=== PATIENT | female | born 1980 | race Caucasian/White ===

== ENCOUNTER 2021-01-19 11:57 | Outpatient (REF) | payer MEDICAID, SELFPAY ==
--- NOTE | 2021-01-19 09:45 | PAPFT_PTH ---
PATIENT: Ana Armijo LOC: [facility] U#:[id number] AGE/SX: 40/F ROOM: RE01/19/[address]: Jaycee Mejía : 1980 BED: DIS: 01/19/2021 SPEC #: [id number] RECD: 01/19/21 13:02 STATUS: ROCK REJoe #: [id number] KRISTINE: 01/19/21 09:[address]: Jaycee Mejía DEPT: [facility] Cytology RECD BY: Saritha Cintron Tissues: 1 - CX/ENDOCX FOR PAP SMEARS Procedures: PAP THIN PREP/UVM Screening HPV DNA PROBE Comments: [id number] (CHLAMYDIA/GC) (HPV 16 & 18/45)
[2021-01-19 14:07] LABS: Abs Immature Grans 0.02 10^3/uL (0.0-0.06); Absolute Basophil Count 0.09 10^3/uL (0.0-0.2); Absolute Eosinophil Count 0.09 10^3/uL (0.0-0.7); Absolute Lymphocyte Count 3.77 10^3/uL (1.2-3.4); Absolute Monocyte Count 0.63 10^3/uL (0.1-0.8); Absolute Neutrophil Count 5.27 10^3/uL (1.2-6.7); Basophils % 0.9; Eosinophils % 0.9; HCT 37.2 % (36.0-46.0); HGB 12.2 g/dL (11.2-15.7); Immature Grans % 0.2; Lymphocytes % 38.2; MCH 28.8 pg (27.0-33.0); MCHC 32.8 % (32.0-36.0); MCV 87.9 fL (80-95); MPV 10.1 fL (8.0-11.0); Monocytes % 6.4; Neutrophils % 53.4; Nucleated RBC 0 %; Platelet Count 388 10^3/uL (130-400); RBC 4.23 10^6/uL (3.93-5.22); RDW 13.4 % (11.7-14.6); RDW-SD 43.4 fL; WBC 9.87 10^3/uL (4.4-10.8)
[2021-01-19 14:22] LABS: ALT 25 U/L (14-59); AST 21 U/L (15-37); Albumin 3.8 g/dL (3.4-5.0); Alkaline Phosphatase 101 U/L (46-116); Anion Gap 8.9 mmol/L (3-11); BUN 16 mg/dL (7-18); Bilirubin, Total 0.2 mg/dL (0.2-1.0); C-Reactive Protein 0.19 mg/dL (0.0-0.3); CO2 28.1 mmol/L (21.0-32.0); CREATININE 0.8 mg/dL (0.55-1.02); Calcium 8.3 mg/dL (8.5-10.1); Chloride 103 mmol/L (98-107); Glucose 115 mg/dL (74-106); Potassium 4.2 mmol/L (3.5-5.1); Sodium 140 mmol/L (136-145)
[2021-01-19 14:45] LABS: Calculated LDL 114 mg/dL (<100); Cholesterol 170 mg/dL (<200); HDL Cholesterol 44 mg/dL (40-60); Triglyceride 61 mg/dL (<150)
[2021-01-20 10:18] LABS: Hepatitis C Ab w Rflx HCV PCR Negative (Negative)
[2021-01-20 10:20] LABS: HIV-1/2 Ag & Ab Screen Negative (Negative)
[2021-01-20 15:17] LABS: Chlamydia Result Negative (Negative); GC Result Negative (Negative)
== END 2021-01-19 11:58 | disposition home or self-care (01) ==
LOC: NCHCN 11:57
PROVIDERS: PCP Registered Nurse; Visit Provider Registered Nurse
DX: R59.1 Generalized enlarged lymph nodes (principal); Z11.3 Encounter for screening for infections with a predominantly sexual mode of transmission; Z13.220 Encounter for screening for lipoid disorders; Z11.59 Encounter for screening for other viral diseases; Z11.4 Encounter for screening for human immunodeficiency virus [HIV]; Z12.4 Encounter for screening for malignant neoplasm of cervix; Z11.51 Encounter for screening for human papillomavirus (HPV); R87.610 Atypical squamous cells of undetermined significance on cytologic smear of cervix (ASC-US)
CPT/HCPCS: 80053; 80061; 86803; 87389; 87491; 87591; 88142; 85025; 86140; 87624

== ENCOUNTER 2021-06-23 11:46 | Outpatient (REF) | payer MEDICAID, SELFPAY ==
[2021-06-26 12:05] LABS: Parathyroid Hormone,Intact 20 pg/mL (19-88)
== END 2021-06-23 11:47 | disposition home or self-care (01) ==
LOC: NCHCN 11:46
PROVIDERS: PCP Registered Nurse; Visit Provider Registered Nurse
DX: E83.51 Hypocalcemia (principal)
CPT/HCPCS: 82310; 83970

== ENCOUNTER 2021-08-25 21:10 | Outpatient (REF) | payer MEDICAID, SELFPAY ==
[2021-08-25 21:52] LABS: Bilirubin Negative (Negative); Blood Negative (Negative); Clarity Sl Cloudy (Clear); Glucose 100 mg/dL (Negative); Ketones Negative (Negative); Leukocyte Esterase Small (Negative); Nitrite Negative (Negative); Specific Gravity 1.025 (1.005-1.025); Urobilinogen 0.2 EU/dL (Up TO 0.2); pH 7.5 (5-8)
[2021-08-25 22:40] LABS: Bacteria Many HPF (Negative); Epithelial Cells Many HPF (Negative); Other Cells Negative (Negative); RBC Negative HPF (0-2)
[2021-08-25 22:41] LABS: C & S Indicated? No/Sq. Contamination; Casts Negative LPF (Negative); Crystals Many Triple Phos HPF (Negative); Mucus Negative (Negative)
== END 2021-08-25 21:11 | disposition home or self-care (01) ==
LOC: NCHCN 21:10
PROVIDERS: PCP Registered Nurse; Visit Provider Registered Nurse
DX: R35.0 Frequency of micturition (principal)
CPT/HCPCS: 81003; 81015

== ENCOUNTER 2024-12-02 15:12 | Outpatient (REF) | payer SELFPAY ==
--- OUTSIDE RECORDS SUMMARY | 2024-12-02 15:19 | XMS_ITS | Encounter Summary ---
Author Organization [facility] Address [address] [place] [address] Care Team Providers Care Station Mechanic Apprentice Name Role Phone Basilio Castellano MD Primary Care Provider [phone] Encounter Details Date Type Department Care Team (Late st Contact Info) Description 01/19/2021 Lab Requisition [facility] Pathology & Laboratory Medicine - [facility] [address], [place] [address] Outr Resulting Lab, Provider Social History Tobacco Use Types Packs/Day Years Used Date Smoking Tobacco: Never Assessed Interpersonal Safety Answer Date Record ed Physically Hurt Never 06/12/2020 Verbally Threaten Not on file 06/12/2020 Comments Unknown Sex and Gender Information Value Date Recorded Sex Assigned at Not on file Legal Sex Female 18:13 EST Gender Identity Not on file Sexual Orientation Not on file documented as of this encounter Plan of Treatment Not on file documented as of this encounter Procedures Procedure Name Priority Date/Time Associated Diagnosis Comments CHLAMYDIA/N. GONORRHOEAE AMPLIFIED NUCLEIC ACID, THINPREP Routine 01/19/2021 9:45 EST documented in this encounter Results * CHLAMYDIA/N. GONORRHOEAE AMPLIFIED RNA, THINPREP (01/19/2021 9:45 EST) Neisseria gonorrhoeae Result Negative Negative 01/20/2021 15:11 EST [facility] Chlamydia trachomatis Result Negative Negative 01/20/2021 15:11 EST [facility] Papanicolaou smear specimen (specimen) CERVIX UTERI STRUCTURE / Unknown 01/19/2021 9:45 EST 01/20/2021 8:27 EST us Provider Outr Resulting Lab MICROBIOLOGY - GENER AL ORDERABLES Final Result [facility] [address] [place] [address] documented in this encounter Visit Diagnoses Not on filedocumented in this encounter Care Teams Station Mechanic Apprentice Relationship Specialty Start Date End Date Basilio Castellano MD [address] [place] [address] PCP - General 01/06/10 documented as of this encounter
--- OUTSIDE RECORDS SUMMARY | 2024-12-02 15:19 | XMS_ITS | Encounter Summary ---
Author Organization [facility] Address [address] [place] [address] Care Team Providers Care Business And Marketing Teacher Name Role Phone Basilio Castellano MD Primary Care Provider [phone] Encounter Details Date Type Department Care Team (Late st Contact Info) Description 01/20/2021 Lab Requisition [facility] Pathology & Laboratory Medicine - [facility] [address] [place] [address] Jaycee Mejía, CUSTOMER MARKETING ASSISTANT [address] [place] [address] Encounter for general adult medical examination without abnormal findings; Encounter for screening for malignant neoplasm of cervix Social History Tobacco Use Types Packs/Day Years [...] Procedure Name Priority Date/Time Associated Diagnosis Comments PAP TEST Today 01/19/2021 9:45 EST Encounter for general adult medical examination without abnormal findings Encounter for screening for malignant neoplasm of cervix HPV DNA DETECTION WITH GENOTYPING, PCR, THINPREP Today 01/19/2021 9:45 EST Encounter for general adult medical examination without abnormal findings Encounter for screening for malignant neoplasm of cervix documented in this encounter Results * HPV DNA DETECTION WITH GENOTYPING, PCR, THINPREP (01/19/2021 9:45 EST) Specimen Source vagina 21:29 EDT [facility] HPV Risk Type 16, PCR Negative Negative 01/31/2021 21:29 EDT [facility] HPV High Risk Type 18, PcR Negative Negative 01/31/2021 21:29 EDT [facility] HPV Other High Risk Types, PCR Negative Negative 01/31/2021 21:29 EDT [facility] Comment: The following Other High Risk HPV types were not detected: 31, 33, 35, 39, 45, 51, 52, 56, 58, 59, 66, and 68 Test Performed by: [address] [address] Small Boat Engineer: Guido Meier M.D. Ph.D.; CLIA# [id number] Papanicolaou smear specimen (specimen) ENTIRE VAGINA / Unknown 01/19/2021 9:45 EST 01/30/2021 11:18 EDT us Jaycee Mejía CUSTOMER MARKETING ASSISTANT MICROBIOLOGY - GENERAL O RDERABLES Final Result [address] [address] * PAP TEST (01/19/2021 9:45 EST) Specimens A. Vagina , ThinPrep Imaging System with Manual Evaluation 02/01/2021 7:52 EDT [facility] Specimen Adequacy Satisfactory for Evaluation - transformation zone component present 02/01/2021 7:52 EDT [facility] General Categorization Epithelial Cell Abnormality 02/01/2021 7:52 EDT [facility] Descriptive Diagnosis Squamous Cell Abnormality - Atypical squamous cells, undetermined significance (ASC-US). 02/01/2021 7:52 EDT [facility] Educational Comments [facility] recommends following ASCCP's 2012 Updated Consensus Guidelines for the Management of Abnormal Cervical Cancer Screening Tests and Cancer Precursors (JLGTD, 2013; 17(5):S1-S27). Consensus guidelines are available online at www.asccp.org. 02/01/2021 7:52 [facility] Attestation By the signature below, the attending physician certifies that they have personally conducted a gross and/or microscopic examination of the described specimens and rendered or confirmed the above diagnosis. 02/01/2021 7:52 [facility] at 0752 Clinical History See below 02/02/20 7:52 [facility] HPV The results for the HPV with Genotyping, PCR, ThinPrep are Negative for the HPV Risk Type 16, PCR, Negative for the HPV High Risk Type 18, PcR, and Negative for the HPV Other High Risk Types, PCR. Testing was performed on specimen [id number] and was resulted on 01/31/20212231 EDT by ALEXIS [facility]. Comment: The following Other High Risk HPV types were not detected: 31, 33, 35, 39, 45, 51, 52, 56, 58, 59, 66, and 68 Test Performed by: [place] [address] Small Boat Engineer: Guido Meier M.D. Ph.D.; CLIA# [id number] 02/01/2021 7:52 [facility] Performing Lab [facility] 02/01/2021 7:52 [facility] Scanned Images 02/01/2021 7:52 [facility] Papanicolaou smear specimen (specimen) ENTIRE VAGINA / Unknown 01/19/2021 9:45 EST 01/20/2021 15:44 EST us Jaycee Mejía CUSTOMER MARKETING ASSISTANT PATHOLOGY ORDERABLES Fin al Result [facility] [address] [place] [address] documented in this encounter Visit Diagnoses Diagnosis Encounter for general adult medical examination without abnormal findings Unspecified general medical examination Encounter for screening for malignant neoplasm of cervix Screening for malignant neoplasm of the cervix documented in this encounter Care Teams Business And Marketing Teacher Relationship Specialty Start Date End Date Basilio Castellano MD [address] [place] [address] PCP - General 01/06/10 documented as of this encounter
--- OUTSIDE RECORDS SUMMARY | 2024-12-02 15:19 | XMS_ITS | Encounter Summary ---
Author Organization [facility] Address [address] [place] [address] Care Team Providers Care Jig Builder Name Role Phone Unavailable Primary Care Provider Unavailabl e Encounter Details Date Type Department Care Team (Late st Contact Info) Description 12/29/2009 Results Only [facility] - [facility] ([facility] [address] [place], [place] [id number] Adan Hernandez MD [address] [place] [address] [address] [place] [address] Social History Tobacco Use Types Packs/Day Years Used Date Smoking Tobacco: Never Assessed Comments Unknown Sex and Gender Information Value Date Recorded Sex Assigned at Not on file Legal Sex Female 18:13 EST Gender Identity Not on file Sexual Orientation Not on file documented as of this encounter Plan of Treatment Not on file documented as of this encounter Procedures Procedure Name Priority Date/Time Associated Diagnosis Comments HPV DETECTION, HIGH RISK TYPES Routine 12/29/2009 21:44 EST CYTOPATHOLOGY Routine 12/29/2009 0:00 EST documented in this encounter Results * HUMAN PAPILLOMA VIRUS DNA TEST (12/29/2009 21:44 EST) Specimen Description Cervix, ThinPrep vial [facility] Result Positive for one or more of HPV types 16,18,31,33,35 ,39,45,51,52,5 6,58,59, or 68. These high/intermedi ate risk HPV types are associated with dysplasia and some cervical cancers. [facility] Report Status Final 01/10/2010 [facility] 12/29/2009 21:4 4 EST 01/06/2010 21:44 EST us Adan Hernandez MD MICROBIOLOGY - GENERAL ORDERABLE S Final Result [facility] [address] [place] [address] * CYTOPATHOLOGY (12/29/2009 0:00 EST) Pathology Report: CYTOPATHOLOGY REPORT ? Reports generated via electronic interface contain original data; ? however they are lacking the format of the original report. ? Caution should be taken when reading/interpreti ng unformatted reports. ? Name: ? ANA HOPPER ? Accession #: ? [id number] ? : ? 1980 (Age: 29) ??F ?Collect Date: ? 12/29/2009 ? Location: ? [facility] ? Receive Date: ? 01/02/2010 ? Provider: ?PETER HALEY MD ? Copy to: ? Specimen/Source: ?Pap Test, Vagina, ThinPrep Imaging System with manual ?? evaluation ? Last Menstrual Period: ? 2002 ? Treatment History: ? LAVH: /RSO 2002 ? Miscellaneous treatment: LSO 05/08 ? Other: ? HPVA - HPV testing requested if ASC-US on the current ThinPrep Pap test. ? SPECIMEN ADEQUACY ? Satisfactory for Evaluation ? - assessment of transformation zone component not applicable ( e.g. atrophy, ? vaginal sample, hysterectomy) ? GENERAL CATEGORIZATION ? Epithelial Cell Abnormality ? INTERPRETATION ? Squamous Cell Abnormality - Atypical squamous cells, undetermined ? significance (ASC-US). ? EDUCATIONAL NOTES/RECOMMENDATI ONS ? [facility] recommends following the 2006 Consensus Guidelines for the Management of Women with Abnormal Cervical Cancer Screening Tests (JLGTD, ? 2007;11(4):201-222 ). ??Consensus guidelines are available online at ? www.ASCCP.org. ? Document reviewed and electronically signed by: ? PALMA ESTRADA MD [facility] ? Report Date: ??01/05/2010 20:07 ? End of Report ? [facility] 12/29/2009 01/02/2010 us Adan Hernandez MD PATHOLOGY ORDERABLES Final Resul t [facility] [address] [place] [address] documented in this encounter Visit Diagnoses Not on filedocumented in this encounter
--- OUTSIDE RECORDS SUMMARY | 2024-12-02 15:19 | XMS_ITS | Encounter Summary ---
Author Organization [facility] [place] [address] Care Team Providers Care Assistant Operations Manager Name Role Phone Gregory Naik DO Primary Care Provider [phone] Reason for Visit * - Closed Specialty Diagnoses / Procedures Referred By Bety perdue Referred To Contact Procedures Film Library- Storage Only Ultrasound Study Jaycee Mejía APRN [address] [place] [address] Referral ID Status Reason Start Date Expiration Date Visits Re quested Visits Authorized [id number] Closed 02/08/2021 02/08/2022 1 1 Encounter Details Date Type Department Care Team (Late st Contact Info) Description 01/26/2021 Ancillary Procedure Radiology Library at [facility] [place] [phone] Jaycee Mejía APRN [address] [place], [place] [address] Social History Tobacco Use Types Packs/Day Years Used Date Smoking Tobacco: Never Assessed Sex and Gender Information Value Date Recorded Sex Assigned at Not on file Gender Identity Not on file Sexual Orientation Not on file documented as of this encounter Plan of Treatment Not on file documented as of this encounter Procedures Procedure Name Priority Date/Time Associated Diagnosis Comments FILM LIBRARY STORAGE ONLY ULTRASOUND STUDY Routine 01/26/2021 12:00 AM EDT documented in this encounter Results * Film Library- Storage Only Ultrasound Study (01/26/2021 12:00 AM EDT) Narrative RAD - 02/08/2021 4:17 PM EDT This exam is auto-finalizing. It's purpose is for storage only. Jaycee Mejía ANNUAL CAMPAIGN MANAGER IMG FILM LIBRARY ORDERABLES [place], [place] documented in this encounter Visit Diagnoses Not on filedocumented in this encounter Care Teams Assistant Operations Manager Relationship Specialty Start Date End Date Gregory Naik DO [address] [place] [address] PCP - General 10/03/10 02/07/21 documented as of this encounter
--- OUTSIDE RECORDS SUMMARY | 2024-12-02 15:19 | XMS_ITS | Referral Summary ---
Author Organization [facility] Address [address] [place] [address] Care Team Providers Care Regional Training Manager Name Role Phone Basilio Castellano MD Primary Care Provider [phone] Social History Tobacco Use Types Packs/Day Years Used Date Smoking Tobacco: Never Assessed Interpersonal Safety Answer Date Record ed Physically Hurt Never 06/12/2020 Verbally Threaten Not on file 06/12/2020 Comments Unknown Sex and Gender Information Value Date Recorded Sex Assigned at Not on file Legal Sex Female 18:13 EST Gender Identity Not on file Sexual Orientation Not on file Plan of Treatment Not on file Procedures Procedure Name Priority Date/Time Associated Diagnosis Comments HEPATITIS C AB W REFLEX TO HCV RNA BY PCR Routine 12/24/2021 12:19 EST from Last 3 Months or Most Recently Relevant to Health Maintenance Results * HEPATITIS C AB W REFLEX TO HCV RNA BY PCR (12/24/2021 12:19 EST) Hep C Antibody Negative Negative 12/26/2021 10:56 EST [facility] Blood VENOUS BLOOD / Unknown 12/24/2021 12:19 EST 12/25/2021 22:06 EST us Provider Outr Resulting Lab CHEMISTRY & BLOOD GA S ORDERABLES Final Result [facility] [address] [place] [address] from Last 3 Months or Most Recently Relevant to Health Maintenance Insurance MEDICAID [place] Care Teams Regional Training Manager Relationship Specialty Start Date End Date Basilio Castellano MD [address] [place] [address] PCP - General 01/06/10
--- OUTSIDE RECORDS SUMMARY | 2024-12-02 15:19 | XMS_ITS | Encounter Summary ---
Author Organization [facility] Address [address] [place] [address] Care Team Providers Care Prestidigitator Name Role Phone Unavailable Primary Care Provider Unavailabl e Encounter Details Date Type Department Care Team (Late st Contact Info) Description 10/12/1999 8:43 EST Hospital Encounter [facility] [address] [place] [address] Devon Carias MD Unknown, Provider, Social History Tobacco Use Types Packs/Day Years [...] on file documented as of this encounter Visit Diagnoses Not on filedocumented in this encounter
--- OUTSIDE RECORDS SUMMARY | 2024-12-02 15:19 | XMS_ITS | Clinical Summary ---
Author Organization [facility] Address [address] [place] [address] Care Team Providers Care Air Hammer Stripper Name Role Phone Basilio Castellano MD Primary Care Provider [phone] Social History Tobacco Use Types Packs/Day Years Used Date Smoking Tobacco: Never Assessed Interpersonal Safety Answer Date Record ed Physically Hurt Never 06/12/2020 Verbally Threaten Not on file 06/12/2020 Comments Unknown Sex and Gender Information Value Date Recorded Sex Assigned at Not on file Legal Sex Female 18:13 EST Gender Identity Not on file Sexual Orientation Not on file Plan of Treatment Health Maintenance Due Date Last Done Comments Hepatitis B Vaccine (1 of 3 - 19+ 3-dose series) 1997 COVID-19 Vaccine (2023- season) 2024 Hepatitis C Screen Completed 12/24/2021, 01/19/2021 Procedures Procedure Name Priority Date/Time Associated Diagnosis Comments HEPATITIS C AB W REFLEX TO HCV RNA BY PCR Routine 12/24/2021 12:19 EST from Last 3 Months or Most Recently Relevant to Health Maintenance Results * HEPATITIS C AB W REFLEX TO HCV RNA BY PCR (12/24/2021 12:19 EST) Hep C Antibody Negative Negative 12/26/2021 10:56 EST [facility] Blood VENOUS BLOOD / Unknown 12/24/2021 12:19 EST 12/25/2021 22:06 EST us Provider Outr Resulting Lab CHEMISTRY & BLOOD GA S ORDERABLES Final Result [facility] [address] [place] [address] from Last 3 Months or Most Recently Relevant to Health Maintenance Insurance MEDICAID [place] Care Teams Air Hammer Stripper Relationship Specialty Start Date End Date Basilio Castellano MD [address] [place] [address] PCP - General 01/06/10
--- OUTSIDE RECORDS SUMMARY | 2024-12-02 15:19 | XMS_ITS | Encounter Summary ---
Author Organization [facility] Address [address] [place] [address] Care Team Providers Care Nonprofit Fundraiser Name Role Phone Basilio Castellano MD Primary Care Provider [phone] Encounter Details Date Type Department Care Team (Late st Contact Info) Description 12/24/2021 Lab Requisition [facility] Pathology & Laboratory Medicine - [facility] [address] [place], [place] [address] Outr Resulting Lab, Provider Social History Tobacco [...] RNA BY PCR Routine 12/24/2021 12:19 EST HEPATITIS A TOTAL ANTIBODY W REFLEX Routine 12/24/2021 12:19 EST HEPATITIS B CORE ANTIBODY (TOTAL) Routine 12/24/2021 12:19 EST HEPATITIS B SURFACE ANTIBODY Routine 12/24/2021 12:19 EST HEPATITIS B SURFACE ANTIGEN Routine 12/24/2021 12:19 EST HIV 1/2 ANTIGEN AND ANTIBODY, 4TH GENERATION Routine 12/24/2021 12:19 EST documented in this encounter Results * HEPATITIS C AB W REFLEX TO HCV RNA BY PCR (12/24/2021 12:19 EST) Hep C Antibody Negative Negative 12/26/2021 10:56 EST [facility] Blood VENOUS BLOOD / Unknown 12/24/2021 12:19 EST 12/25/2021 22:06 EST us Provider Outr Resulting Lab CHEMISTRY & BLOOD GA S ORDERABLES Final Result Performing Organization Address City/[facility]/ZIP Co de Phone Number [facility] [address] [place] [address] * HEPATITIS B SURFACE ANTIGEN (12/24/2021 12:19 EST) Hep B Surface Ag Negative Negative 12/26/2021 10:12 EST [facility] Blood VENOUS BLOOD / Unknown 12/24/2021 12:19 EST 12/25/2021 22:06 EST us Provider Outr Resulting Lab CHEMISTRY & BLOOD GA S ORDERABLES Final Result Performing Organization Address City/[facility]/ZIP Co de Phone Number [facility] [address] [place] [address] * HEPATITIS B CORE ANTIBODY (TOTAL) (12/24/2021 12:19 EST) Hepatitis B Core Ab, Total Negative Negative 12/26/2021 11:00 EST [facility] Blood VENOUS BLOOD / Unknown 12/24/2021 12:19 EST 12/25/2021 22:06 EST us Provider Outr Resulting Lab CHEMISTRY & BLOOD GA S ORDERABLES Final Result Performing Organization Address City/[facility]/ZIP Co de Phone Number [facility] [address] [place] [address] * HEPATITIS B SURFACE ANTIBODY (12/24/2021 12:19 EST) Hep B Surface Ab, Quantitative >1,000.0 See Note mIU/mL 12/26/2021 10:02 [facility] Comment: Reference Range for Hep B Surface Ab, Quant: Positive: >= 10.0 mIU/mL Negative: ??< 10.0 mIU/mL Patient is presumed to be immune to infection with Hepatitis B Virus. Hep B Surface Ab, Qualitative Positive See Note 12/26/2021 10:02 [facility] Comment: Reference Range for Hep B Surface Ab, Qual: Unvaccinated: ??Negative Vaccinated: ??Positive Blood VENOUS BLOOD / Unknown 12/24/2021 12:19 EST 12/25/2021 22:06 EST Provider Outr Resulting Lab CHEMISTRY & BLOOD GA S ORDERABLES Final Result Performing Organization Address [facility] Co de Phone Number [facility] [address] [place] [address] * HIV 1/2 ANTIGEN AND ANTIBODY, 4TH GENERATION (12/24/2021 12:19 EST) HIV 1 and 2 Antibody/p24 Antigen, 4th Generation Negative Negative 12/26/2021 10:49 EST [facility] Comment:If acute HIV-1 infec tion is suspected in a high risk patient, submit plasma specimen for HIV-1 RNA quantitation test. Blood VENOUS BLOOD / Unknown 12/24/2021 12:19 EST 12/25/2021 22:06 EST Narrative [facility] - 12/26/2021 10:49 EST Fourth Generation assay performed on the Siemens Centaur XPT. us Provider Outr Resulting Lab IMMUNOLOGY AND SEROL OGY ORDERABLES Final Result Performing Organization Address [facility]/ZIP Co de Phone Number [facility] [address] [place] [address] * HEPATITIS A TOTAL ANTIBODY W REFLEX (12/24/2021 12:19 EST) Hepatitis A Antibody, Total Negative Negative 12/26/2021 11:01 EST [facility] Blood VENOUS BLOOD / Unknown 12/24/2021 12:19 EST 12/25/2021 22:06 EST Narrative [facility] - 12/26/2021 11:01 EST The result of this assay can be falsely elevated (Positive) due to the consumption of Biotin. us Provider Outr Resulting Lab CHEMISTRY & BLOOD GA S ORDERABLES Final Result Performing Organization Address City/State/[facility] Co de Phone Number [facility] [address] [place] [address] documented in this encounter Visit Diagnoses Not on filedocumented in this encounter Care Teams Nonprofit Fundraiser Relationship Specialty Start Date End Date Basilio Castellano MD [address] [place] [address] PCP - General 01/06/10 documented as of this encounter
--- OUTSIDE RECORDS SUMMARY | 2024-12-02 15:19 | XMS_ITS | Encounter Summary ---
Author Organization [facility] [place] [address] Care Team Providers Care Gwot Ia/Ilo Intelligence Support Name Role Phone Jaycee Mejía APRN Primary Care Provider + Encounter Details Date Type Department Care Team (Late st Contact Info) Description 03/09/2022 Telephone Obstetrics [place] [phone] Erin Cruz Social History Tobacco Use Types Packs/Day Years Used Date Smoking Tobacco: Every Day Smokeless Tobacco: Never Sex and Gender Information Value Date Recorded Sex Assigned at Not on file Gender Identity Not on file Sexual Orientation Not on file documented as of this encounter Plan of Treatment Not on file documented as of this encounter Visit Diagnoses Not on filedocumented in this encounter Care Teams Gwot Ia/Ilo Intelligence Support Relationship Specialty Start Date End Date Jaycee Mejía APRN [address] [place] [address] PCP - General Family Medicine 02/08/21 documented as of this encounter
--- OUTSIDE RECORDS SUMMARY | 2024-12-02 15:19 | XMS_ITS | Encounter Summary ---
Author Organization [facility] Address [facility] [place] [address] Care Team Providers Care Research Animal Facility Supervisor Name Role Phone Jaycee Mejía APRN Primary Care Provider + Encounter Details Date Type Department Care Team (Late st Contact Info) Description 02/13/2021 2:25 PM EDT - 02/13/2021 11:59 PM EDT Hospital Encounter Discharge Dis position: Home Social History Tobacco Use Types Packs/Day Years Used Date Smoking Tobacco: Never Assessed Sex and Gender Information Value Date Recorded Sex Assigned at Not on file Gender Identity Not on file Sexual Orientation Not on file documented as of this encounter Medications at Time of Discharge Medication Sig Dispensed Refills Start Date End Date docusate sodium (COLACE) 100 mg capsule 100 MG = 1 Capsule(s), PO, Twice daily 04/15/2008 ibuprofen (ADVIL;MOTRIN) 800 mg tablet 800 MG = 1 Tablet(s), PO, Q8H 04/15/2008 acetaminophen (TYLENOL) 325 mg tablet 04/15/2008 estrogens, conjugated, (PREMARIN) 0.625 mg tablet 0.625 MG = 1 Tablet(s), PO, Once daily 04/15/2008 documented as of this encounter Plan of Treatment Not on file documented as of this encounter Procedures Procedure Name Priority Date/Time Associated Diagnosis Comments SURGICAL PATHOLOGY REPORT Routine 02/13/2021 2:26 PM EDT documented in this encounter Results * Surgical Pathology Report (02/13/2021 2:26 PM EDT) Final Diagnosis [id number] ? Location: [facility] The signing pathologist has (i) examined the relevant preparation(s) for the specimen(s) and (ii) rendered or confirmed the diagnosis(es). . ?Surgical Pathology DIAGNOSIS CONSULTATION CASE Outside slide(s) labeled [id number], collection date 05/15/2019. Right flank, skin ??excision: - Basal cell carcinoma, superficial type, pigmented, see discussion Electronically signed by: ??Quincy Sanders MD Verified: ??02/13/2021 ?Dermatopatholog ist, Bone & Soft Tissue Pathologist Performed at: ??-[facility] [place], [place], [place] DISCUSSION The tumor extends to peripheral specimen edge; however, per report, this may not represent the true margin. SPECIMEN(S) SUBMITTED CONSULTATION CASE A - 5 slide(s) labeled [id number], collection date 05/15/2019. [id number] Report to: [facility] Surgical Pathology Department [facility], [facility], [address]nd Floor [address] [place] [address] ??[id number] CLINICAL INFORMATION . SPECIMEN PROCESSING [facility] ([facility]) pathology slide(s) are reviewed. ??Refer to Diagnosis and Specimen Submitted for specific case information. For the full text of the [facility] report(s) please refer to Non- Documentation Pathology in the electronic health record (eDH). 02/13/2021 4:51 PM EDT [facility] Consult Case 02/13/2021 2:26 PM EDT 02/13/2021 2:26 PM EDT Chidi Kang MD PATHOLOGY/[place] [address] documented in this encounter Visit Diagnoses Not on filedocumented in this encounter Care Teams Research Animal Facility Supervisor Relationship Specialty Start Date End Date Jaycee Mejía APRN [address] [place] [address] PCP - General Family Medicine 02/08/21 documented as of this encounter
--- OUTSIDE RECORDS SUMMARY | 2024-12-02 15:19 | XMS_ITS | Encounter Summary ---
Author Organization [facility] Address [address] [place] [address] Care Team Providers Care Milk Truck Driver Name Role Phone Basilio Castellano MD Primary Care Provider [phone] Encounter Details Date Type Department Care Team (Late st Contact Info) Description 01/19/2021 Lab Requisition [facility] Pathology & Laboratory Medicine - [facility] [address], [place] [address] Outr Resulting Lab, Provider Social History Tobacco [...] REFLEX TO HCV RNA BY PCR Routine 01/19/2021 10:00 EST documented in this encounter Results * HEPATITIS C AB W REFLEX TO HCV RNA BY PCR (01/19/2021 10:00 EST) Hep C Antibody Negative Negative 01/20/2021 10:12 EST [facility] Blood VENOUS BLOOD / Unknown 01/19/2021 10:00 EST 01/19/2021 20:40 EST us Provider Outr Resulting Lab CHEMISTRY & BLOOD GA S ORDERABLES Final Result [facility] [address] [place] [address] documented in this encounter Visit Diagnoses Not on filedocumented in this encounter Care Teams Milk Truck Driver Relationship Specialty Start Date End Date Basilio Castellano MD [address] [place] [address] PCP - General 01/06/10 documented as of this encounter
--- OUTSIDE RECORDS SUMMARY | 2024-12-02 15:19 | XMS_ITS | Encounter Summary ---
Author Organization [facility] Address [facility] [place] [address] Care Team Providers Care Manager Collection Name Role Phone MejíaJaycee Pat AMBROSIO Primary Care Provider + Encounter Details Date Type Department Care Team (Late st Contact Info) Description 04/04/2008 Orders Only Gynecology Oncology at [facility] [place] [id number] Chidi Kang MD Social History Tobacco Use Types Packs/Day Years [...] Associated Diagnosis Comments SURGICAL PATHOLOGY REPORT Routine 04/05/2008 7:22 AM EDT documented in this encounter Results * Surgical Pathology Report (04/05/2008 7:22 AM EDT) Surgical Pathology Report [id number] ? [facility]; B The signing pathologist has (i) examined the relevant preparation(s) for the specimen(s) and (ii) rendered or confirmed the diagnosis(es). . ?Pathology Surgical Pathology Final Report Clinical Information Specimen Submitted: A - Left ovary and tube, pelvis for frozen section Clinical Diagnosis: Left pelvic pain, left pelvic mass Frozen Section Diagnosis Frozen section(s) performed. ??Please refer to separate electronic frozen section report(s). Gross Description Labeled/Fixative: ?Left ovary and tube, pelvis; fresh. Qty/Size/Weight: ? Multiple fragments. ??The disrupted ovary and ? attached fallopian tube, 5.5 x 4.5 x 3.5 cm. ??The ? hemorrhagic fragments, 41.3 and 13.4 g respectively. Tissue Description: ?Disrupted ovary with attached fallopian tube with a ? clip at the fallopian tube and detached hemorrhagic ? fragments. ?? Surface: ?Nodular and hemorrhagic. ?? Tumor: ?Not identified. ?? Parenchyma: ? Cut surface is hemorrhagic with several small cysts, ? 0.3 cm in diameter, smooth inner lining and no fluid ? identified. ?? Fallopian tube: ? 4.0 cm in length, 0.7 cm in diameter. ??The outer ? surface is hemorrhagic and smooth. ??Cut surface ? shows stellate-shaped lumen and hemorrhagic wall. Sections/Processi ng: ?? (1) public service representative three pieces from the ovary, ? frozen section; (2) public service representative of ovary; (3) ? ovary and cross section of fallopian tube. ??Photo is ?taken and e-mailed to Dr. Kang. ?? (R3) ??aje/HC Microscopic Description Slides reviewed, microscopic description not recorded. Diagnosis Left fallopian tube and ovary (salpingo-oophore ctomy): ?? 1. Torsed fallopian tube and ovary with extensive stromal hemorrhage. ?? 2. No evidence of malignancy. CR-0 04/08/08 [facility] 04/08/08 Verified by: ? Qamar Aguilera MD ?Pathologist ?(Electronic Signature) The attending pathologist whose signature appears on this report has reviewed all diagnostic slides and has edited the gross and/or microscopic portion of the report in rendering the final pathologic diagnosis. . ? Pathology Frozen Section Report Frozen Section Report A. Benign hemorrhagic ovary, consistent with torsion. 04/06/08 ??Verified by: ??Navarro Rivas MD, Pathologist The attending pathologist whose electronic signature appears on this report has reviewed all diagnostic slides in rendering the frozen section diagnosis. This intraoperative consultation should be interpreted as a preliminary diagnosis pending review of the entire specimen and special studies, if any. KEVIN ONTIVEROS 04/05/2008 7:22 AM EDT Chidi Kang MD PATHOLOGY/CYTOLOGY O RDERABLES KEVIN ONTIVEROS documented in this encounter Visit Diagnoses Not on filedocumented in this encounter Care Teams Manager Collection Relationship Specialty Start Date End Date Jaycee Mejía APRN [address] [place] [address] PCP - General Family Medicine 02/08/21 documented as of this encounter
--- OUTSIDE RECORDS SUMMARY | 2024-12-02 15:19 | XMS_ITS | Encounter Summary ---
Author Organization [facility] Address [facility] [place] [address] Care Team Providers Care Commutator V Ring Assembler Name Role Phone Jaycee Mejía APRN Primary Care Provider + Reason for Visit * Reason Comments Follow-up * Consultation (Urgent) - Closed Specialty Diagnoses / Procedures Referred By Contac t Referred To Contact Gynecology Oncology Diagnoses Malignant neoplasm of cervix uteri, unspecified Acquired absence of both cervix and uterus Atypical squamous cells of undetermined significance on cytologic smear of cervix (ASC-US) Jaycee Mejía APRN [address] [place] [address] [facility] [address] [place] [address] Referral ID Status Reason Start Date Expiration Date V isits Requested Visits Authorized [id number] Closed Consult, Test & Treat Connection Center PCP Updated and/or Approved 02/01/2021 02/01/2022 6 6 Encounter Details Date Type Department Care Team (Late st Contact Info) Description 02/24/2021 3:00 PM EDT Office Visit Obstetrics [place] [address] Sweta Fuller MD [facility] OBSTETRICS [place] [address] Surgical menopause; Enlarged lymph nodes; Abnormal vaginal Pap smear Social History Tobacco Use Types Packs/Day Years Used Date Smoking Tobacco: Every Day Smokeless Tobacco: Never Sex and Gender Information Value Date Recorded Sex Assigned at Not on file Gender Identity Not on file Sexual Orientation Not on file documented as of this encounter Last Filed Vital Signs Vital Sign Reading Time Taken Comments Blood Pressure 129/79 02/24/2021 3:00 PM EDT Pulse 85 02/24/2021 3:00 PM EDT Temperature 36.4 ??C (97.6 ??F) 02/24/2021 3:00 PM ED T Respiratory Rate 18 02/24/2021 3:00 PM EDT Oxygen Saturation 100% 02/24/2021 3:00 PM EDT Inhaled Oxygen Concentration - - Weight 60.6 kg (133 lb 9.6 oz) 02/24/2021 3:00 P M EDT Height - - Body Mass Index - - documented in this encounter Progress Notes * Sweta Fuller MD - 02/24/2021 3:00 PM EDT Images from the original note were not included. Department of Obstetrics and Gynecology Sweta Fuller MD Referring Provider: Jaycee Mejía APRN [address] [place] [address] FIELD RETURN REPAIRER New Patient Visit Reason for Visit: Ana is a 40 y.o. P2 postmenopausal female who presents for a new patient visitwith the following complaints/concerns: abnormal vaginal pap smear, concern for cervical cancer History of Present Illness: She presented to PCP due to right leg aching. her PCP noticed an inguinal lymph node was palpable. She had an ultrasound which showed bilobed inguinal node. Her PCP was concerned because of the patient reported history of cervical cancer. ASCUS Pap with negative high risk HPV was done at that time (01/19/21). Other history includes, she had a resection of basal cell carcinoma on the left flank last summer. There is another spot that is being followed in the center of the lower back. 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 Urias in 2004. Surgical pathology is in [facility], I personally reviewed this record which showed no residual dysplasia or cancer LSO LSO 2007 for hemorrhagic cyst torsion Did not take HRT since oophorectomy (despite rx in chart). Had 2 SVDs. Endorses vaginal dryness, decreased energy, feels that she would benefit from HRT. No hx blood clots. She is a smoker. No hx hypertension. Review of Systems: per HPI There are no problems to display for this patient. Past Medical History: Diagnosis Date ??? Tobacco use Past Surgical History: Procedure Laterality Date ??? HYSTERECTOMY ??? OVARY REMOVAL ??? SKIN BIOPSY BACK ??? TUBAL LIGATION Family History Problem Relation Age of Onset ??? Breast Cancer Mother 75 OB History No obstetric history on file. Current Outpatient Medications Medication Sig Dispense Refill ??? docusate sodium (COLACE) 100 mg capsule 100 MG = 1 Capsule(s), PO, Twice daily ??? ibuprofen (ADVIL;MOTRIN) 800 mg tablet 800 MG = 1 Tablet(s), PO, Q8H ??? acetaminophen (TYLENOL) 325 mg tablet ??? estrogens, conjugated, (PREMARIN) 0.625 mg tablet 0.625 MG = 1 Tablet(s), PO, Once daily (Patient not taking: No sig reported) No current facility-administered medications for this visit. Allergies Allergen Reactions ??? Penicillins Physical Exam Last Set of Vitals: BP 129/79 Pulse 85 Temp 36.4 ??C (97.6 ??F) Resp 18 Wt 60.6 kg (133 lb 9.6 oz) LMP 03/01/2005 (Approximate) SpO2 100% Weight: 60.6 kg (133 lb 9.6 oz) Physical Exam Constitutional: Appearance: She is well-developed. HENT: Head: Normocephalic and atraumatic. Abdominal: General: There is no distension. Palpations: Abdomen is soft. There is no mass. Tenderness: There is no abdominal tenderness. There is no rebound. Skin: General: Skin is warm and dry. Neurological: Mental Status: She is alert and oriented to person, place, and time. Groin - small mobile nontender lymph node, overlying scar from previous excision present Pelvic: VULVA: normal appearing vulva with no masses, tenderness or lesions, VAGINA: normal appearing vagina with normal color and discharge, no lesions, atrophic, vaginal cuffwithout lesions No pelvic masses on bimanual. Labs pap smear reviewed in media Imaging none Assessment/Plan: Ana is a 40 y.o. P2 postmenopausal female who presents for a new patient visit with the following complaints/concerns: abnormal vaginal pap smear, concern for cervical cancer We reviewed her pathology records from hysterectomy and oophorectomy. No evidence for dysplasia or cancer on hysterectomy specimen. LEEP was for SADE 3 which we discussed is a precancer. This patient does not have a history of cervical cancer. She is relieved to hear this information. I do not believe her inguinal lymph node relates to her history of cervical dysplasia. I asked her to return to her PCP for further assessment. She does recall that she had surgery in that area to have a lymph noderemoved in the past. She does not know the result of that surgery or why it was done. With respect to vaginal cytology - discussed recommendation to complete 20 years of negative screening prior to discontinuing. This is her first vaginal pap since hysterectomy. She does not know whatyear she had her LEEP. Given ASCUS HPV neg, I recommend repeat pap in one year. ASCCP recommendations for vaginal cytology: She would also like to start HRT. She is a candidate despite being a smoker. We did discussed quitting to decrease risk of blood clots. Reviewed systematic replacement of estrogen is recommended for cardiovascular health, bone health, and dementia prevention until the average age of menopause 49. She would like patch, lower clot risk than PO. Rx sent to pharmacy. Follow-up in one year for pap smear. Sweta Fuller MD documented in this encounter Plan of Treatment Not on file documented as of this encounter Visit Diagnoses Diagnosis Surgical menopause Symptomatic states associated with artificial menopause Enlarged lymph nodes Enlargement of lymph nodes Abnormal vaginal Pap smear Abnormal glandular Papanicolaou smear of vagina documented in this encounter Care Teams Commutator V Ring Assembler Relationship Specialty Start Date End Date Jaycee Mejía, PERSONAL BANKING OFFICER [address] [place] [address] PCP - General Family Medicine 02/08/21 documented as of this encounter
--- OUTSIDE RECORDS SUMMARY | 2024-12-02 15:19 | XMS_ITS | Encounter Summary ---
Author Organization [facility] Address [address] [place] [address] Care Team Providers Care Head Of Digital Advertising & Integration Name Role Phone Basilio Castellano MD Primary Care Provider [phone] Encounter Details Date Type Department Care Team (Late st Contact Info) Description 10/30/2019 Lab Requisition [facility] Pathology & Laboratory Medicine - [address] [address] Unknown, Provider, Social History Tobacco Use Types [...] Procedure Name Priority Date/Time Associated Diagnosis Comments QUANTIFERON TB GOLD PLUS Routine 10/29/2019 13:51 EST documented in this encounter Results * QUANTIFERON TB GOLD PLUS (10/29/2019 13:51 EST) Pathologist [facility] Quantiferon Interpretation Negative Negative 11/02/2019 13:10 EST [facility] Comment: No interferon-gamma response to M. tuberculosis antigens was detected. ??Infection with M. tuberculosis is unlikely. A single negative result does not exclude infection with M. tuberculosis. ??In patients at high risk for M. tuberculosis infection, a second test should be considered in accordance with the 2017 ATS/IDSA/CDC Clinical Practice Guidelines for Diagnosis of Tuberculosis in Adults and Children. [Alexi PRINCE et. al. Clin. Infect. Dis. 2017:64 (2) ??: 111-115]. Results were obtained with the Qiagen QuantiFERON TB Gold Plus BELL. TB1 Ag minus Nil 0.09 IU/ml 11/02/20 13:10 EST [facility] TB2 Ag minus Nil 0.01 IU/mL 11/02/20 13:10 EST [facility] Blood VENOUS BLOOD / Unknown 10/29/2019 13:51 EST 10/30/2019 20:37 EST Narrative [facility] - 11/02/2019 13:10 EST Results were obtained with the Qiagen QuantiFERON-TB Gold Plus BELL. us Provider Unknown CHEMISTRY & BLOOD GAS ORDERA BLES Final Result [facility] [address] [place] [address] documented in this encounter Visit Diagnoses Not on filedocumented in this encounter Care Teams Head Of Digital Advertising & Integration Relationship Specialty Start Date End Date Basilio Castellano MD [address] [place] [id number] PCP - General 01/06/10 documented as of this encounter
--- OUTSIDE RECORDS SUMMARY | 2024-12-02 15:19 | XMS_ITS | Encounter Summary ---
Author Organization [facility] Address [facility] [place] [address] Care Team Providers Care Supervisor Lead Burning Name Role Phone Jaycee Mejía APRN Primary Care Provider + Encounter Details Date Type Department Care Team (Late st Contact Info) Description 02/13/2021 External Results Medical Records [facility] [place] [id number] Provider, Scanning Social History Tobacco Use Types Packs/Day Years Used Date Smoking Tobacco: Never Assessed Sex and Gender Information Value Date Recorded Sex Assigned at Not on file Gender Identity Not on file Sexual Orientation Not on file documented as of this encounter Plan of Treatment Not on file documented as of this encounter Procedures Procedure Name Priority Date/Time Associated Diagnosis Comments SURGICAL PATHOLOGY SCAN Routine 02/13/2021 documented in this encounter Results * Scan Doc: Surgical Pathology (02/13/2021) Chidi Kang MD MEDIA MGR SCAN EXT O RDR/RSLT documented in this encounter Visit Diagnoses Not on filedocumented in this encounter Care Teams Supervisor Lead Burning Relationship Specialty Start Date End Date Jaycee Mejía APRN [address] [place] [address] PCP - General Family Medicine 02/08/21 documented as of this encounter
--- OUTSIDE RECORDS SUMMARY | 2024-12-02 15:19 | XMS_ITS | Encounter Summary ---
Author Organization [facility] Address [address] [place] [address] Care Team Providers Care Vanstone Machine Operator Name Role Phone Basilio Castellano MD Primary Care Provider [phone] Encounter Details Date Type Department Care Team (Late st Contact Info) Description 01/19/2021 Lab Requisition [facility] Pathology & Laboratory Medicine - [facility] [address] [place], [place] [address] Outr Resulting Lab, Provider Social History Tobacco [...] Procedure Name Priority Date/Time Associated Diagnosis Comments HIV 1/2 ANTIGEN AND ANTIBODY, 4TH GENERATION Routine 01/19/2021 10:00 EST documented in this encounter Results * HIV 1/2 ANTIGEN AND ANTIBODY, 4TH GENERATION (01/19/2021 10:00 EST) HIV 1 and 2 Antibody/p24 Antigen, 4th Generation Negative Negative 01/20/2021 10:15 EST [facility] Comment: If acute HIV-1 infection is suspected in a high risk ??patient, submit plasma specimen for HIV-1 RNA quantitation test. Fourth Generation assay performed on the Siemens ActXaur. Blood VENOUS BLOOD / Unknown 01/19/2021 10:00 EST 01/19/2021 20:40 EST us Provider Outr Resulting Lab IMMUNOLOGY AND SEROL OGY ORDERABLES Final Result [facility] [address] [place] [address] documented in this encounter Visit Diagnoses Not on filedocumented in this encounter Care Teams Vanstone Machine Operator Relationship Specialty Start Date End Date Basilio Castellano MD [address] [place] [address] PCP - General 01/06/10 documented as of this encounter
--- OUTSIDE RECORDS SUMMARY | 2024-12-02 15:19 | XMS_ITS | Encounter Summary ---
Author Organization [facility] Address [address] [place] [address] Care Team Providers Care Family Lawyer Name Role Phone Basilio Castellano MD Primary Care Provider [phone] Encounter Details Date Type Department Care Team (Late st Contact Info) Description 05/15/2019 Results Only [facility] [phone] Mara Smart MD [address] [place] [phone] Social History Tobacco Use Types Packs/Day Years [...] Priority Date/Time Associated Diagnosis Comments SURGICAL PATHOLOGY Routine 05/15/2019 21 :56 EDT documented in this encounter Results * SURGICAL PATHOLOGY (05/15/2019 21:56 EDT) Pathology Report: SURGICAL PATHOLOGY REPORT Reports generated via electronic interface contain original data; however they are lacking the format of the original report. Caution should be taken when reading/interpret ing unformatted reports. Name: ? ANA HOPPER ? Accession #: ? [id number] ? : ? 1980 (Age: 38) ??F ? Collect Date: ? 05/15/2019 ? Location: ? [facility] ? Receive Date: ? 05/15/2019 ? Provider: MARA SMART MD Copy to: ? Final Pathologic Diagnosis: SKIN OF FLANK, RIGHT, EXCISION: - Basal cell carcinoma, superficial multicentric type. ??See comment. - Margins of excision negative where sections appear complete. - Lesion measures approximately 0.8 mm to the nearest peripheral margin. Comment: Present centrally is basal cell carcinoma which is generally well-encompassed. In one of the central sections, basal cell carcinoma extends to a peripheral tissue edge but the margin is not fully represented, despite deeper levels. The tumor is well encompassed in the other central sections. Deeper levels have been examined on block (2). ??(Dr. Thorpe)/[facility] Document reviewed and electronically signed by: ELVIS THORPE MD Report ??Date: 05/18/2019 15:22 By the signature above, the attending physician certifies that he/she has personally conducted a gross and/or microscopic examination of the described specimens and rendered or confirmed the above diagnosis. Specimen(s) Received: Right flank skin lesion Clinical History: Right flank skin lesion Gross Description: ? Received in formalin labelled with proper patient identification (initials P, K) and right flank skin lesion is an unoriented elliptical excision of palacios-pink skin (2.1 x 1.0 cm and is excised to a depth of 0.5 cm). There is a central palacios-brown variegated macule that measures 0.6 x 0.5 x 0.1 cm. The margins are inked blue. The specimen is serially sectioned and entirely submitted as in 2-3 central sections and 1 tips, reverse en face. ? Dr. Bhatt 05/16/2019 9:32 AM End of Report [facility] 05/15/2019 21:5 6 EDT 05/15/2019 21:56 EDT us Mara Smart MD PATHOLOGY ORDERABLES Fi nal Result [facility] [address] [place] [address] documented in this encounter Visit Diagnoses Not on filedocumented in this encounter Care Teams Family Lawyer Relationship Specialty Start Date End Date Basilio Castellano MD [address] [place] [address] PCP - General 01/06/10 documented as of this encounter
--- OUTSIDE RECORDS SUMMARY | 2024-12-02 15:19 | XMS_ITS | Encounter Summary ---
Author Organization [facility] Address [address] [place] [address] Care Team Providers Care Telephone Order Supervisor Name Role Phone Basilio Castellano MD Primary Care Provider [phone] Encounter Details Date Type Department Care Team (Late st Contact Info) Description 06/24/2021 Lab Requisition [facility] Pathology & Laboratory Medicine - [facility] [address], [place] [id number] Outr Resulting Lab, Provider Social History Tobacco [...] Procedure Name Priority Date/Time Associated Diagnosis Comments PTH INTACT Routine 06/23/2021 11:15 EDT documented in this encounter Results * PTH INTACT (06/23/2021 11:15 EDT) Intact PTH 20 19 - 88 pg/mL 06/26/2021 12:01 EDT [facility] Blood VENOUS BLOOD / Unknown 06/23/2021 11:15 EDT 06/25/2021 16:21 EDT us Provider Outr Resulting Lab CHEMISTRY & BLOOD GA S ORDERABLES Final Result [facility] [address] [place] [address] documented in this encounter Visit Diagnoses Not on filedocumented in this encounter Care Teams Telephone Order Supervisor Relationship Specialty Start Date End Date Basilio Castellano MD [address] [place] [address] PCP - General 01/06/10 documented as of this encounter
--- OUTSIDE RECORDS SUMMARY | 2024-12-02 15:19 | XMS_ITS | Encounter Summary ---
Author Organization [facility] Address [address] [place] [address] Care Team Providers Care Finance Manager Name Role Phone Basilio Castellano MD Primary Care Provider [phone] Encounter Details Date Type Department Care Team (Late st Contact Info) Description 10/29/2019 Results Only [facility] - [facility] [place] [address] [place], [place] [address] Unknown, Provider, Social History Tobacco Use Types [...] TB GOLD PLUS Routine 10/29/2019 13:51 EST MEASLES IGG AB Routine 10/29/2019 13:51 EST RUBELLA IGG ANTIBODY Routine 10/29/2019 13:51 EST HEPATITIS B SURFACE ANTIBODY Routine 10/29/2019 13:51 EST VARICELLA IGG ANTIBODY Routine 10/29/2019 13:51 EST MUMPS ANTIBODY IGG Routine 10/29/2019 13 :51 EST MEASLES IGG AB Routine 10/29/2019 13:15 EST documented in this encounter Results * QUANTIFERON TB GOLD PLUS (10/29/2019 13:51 EST) Quantiferon Interpretation Negative Negative 11/02/2019 17:15 EST [facility] Comment: No interferon-gamma response to M. tuberculosis [...] Plus BELL. TB1 Ag minus Nil 0.09 () IU/ml 11/02/20 19 17:15 [facility] TB2 Ag minus Nil 0.01 () IU/mL 11/02/20 17:15 [facility] Comment: Results were obtained with the Qiagen QuantiFERON-TB Gold Plus BELL. Test performed [place] [address] 10/29/2019 13:5 1 EST 10/29/2019 13:51 EST us Provider Unknown CHEMISTRY & BLOOD GAS ORDERA BLES Final Result Performing Organization Address City/[facility]/ZIP Co de Phone Number [facility] * VARICELLA IGG ANTIBODY (10/29/2019 13:51 EST) Pathologist [facility] Varicella IgG Ab Positive Negative 10/31/2019 1:47 EST [facility] Comment:Presumed immune to V aricella infection. 10/29/2019 13:5 1 EST 10/29/2019 13:51 EST us Provider Unknown IMMUNOLOGY AND SEROLOGY ORDE RABPOONAM Final Result [facility] * MEASLES IGG AB (10/29/2019 13:51 EST) Pathologist [facility] RUBEOLA IGG ANTIBODY - [facility] [place] Equivocal Negative 10/30/2019 22:06 EST [facility] Comment:Equivocal result, co nfirmatory testing ordered. 10/29/2019 13:5 1 EST 10/29/2019 13:51 EST us Provider Unknown MD IMMUNOLOGY AND SEROLOGY ORDE RABLES Final Result Performing Organization Address [facility] Co de Phone Number [facility] * MUMPS ANTIBODY IGG (10/29/2019 13:51 EST) Mumps Ab, IgG, S Positive Negative 10/30/2019 22:48 EST [facility] Comment:Presumed immune to M umps infection. 10/29/2019 13:5 1 EST 10/29/2019 13:51 EST us Provider Unknown MD IMMUNOLOGY AND SEROLOGY ORDE RABLES Final Result Performing Organization Address [facility] Phone Number [facility] * HEPATITIS B SURFACE ANTIBODY (10/29/2019 13:51 EST) Hep B Surface Ab, Qualitative > 1000 10/29/2019 15:50 EST [facility] Comment: ? Interpretative Guidelines >=12.00 mIU/mL ??= Positive Clinical Interpretation of Immune Status: Anti-HBs detected at >10 mIU/mL. Patient is considered to be immune to infection with HBV. ??It has not been determined what the clinical significance is for values greater than or = 12 mIU/mL, other than the individual is considered to be immune to HBV infection. The results of this assay can be falsely lowered due to the consumption of Biotin. 10/29/2019 13:5 1 EST 10/29/2019 13:51 EST us Provider Unknown MD CHEMISTRY & BLOOD GAS ORDERA BLES Final Result Performing Organization Address [facility] Co de Phone Number [facility] * RUBELLA IGG ANTIBODY (10/29/2019 13:51 EST) RUBELLA IGG ANTIBODY - [facility] Positive 10/29/2019 15:32 EST [facility] Comment: Expected value: Positive The presence of Rubella IgG suggest immunity against rubella 10/29/2019 13:5 1 EST 10/29/2019 13:51 EST us Provider Unknown CHEMISTRY & BLOOD GAS ORDERA BLES Final Result Performing Organization Address [facility]/ZIP Co de Phone Number [facility] * MEASLES IGG AB (10/29/2019 13:15 EST) Measles IgG Ab 1.4 Positive () 11/02/2019 17:15 EST [facility] Comment: Test Performed by: [facility] [place] [address] Reading Efficiency Course Director: Guido Meier M.D. Ph.D.; CLIA# [id number] Results suggest response to immunization or prior exposure to the virus. REFERENCE VALUE Vaccinated: Positive (>=1.1 AI) Unvaccinated: Negative (<=0.8 AI) 10/29/2019 13:1 5 EST 10/30/2019 22:10 EST us Provider Unknown IMMUNOLOGY AND SEROLOGY ORDE RABPOONAM Final Result Performing Organization Address City/[facility]/ZIP Co de Phone Number [facility] documented in this encounter Visit Diagnoses Not on filedocumented in this encounter Care Teams Finance Manager Relationship Specialty Start Date End Date Basilio Castellano MD [address] [place] [address] PCP - General 01/06/10 documented as of this encounter
--- OUTSIDE RECORDS SUMMARY | 2024-12-02 15:19 | XMS_ITS | Clinical Summary ---
Author Organization [facility] Address [facility] [place] [address] Care Team Providers Care Chemical Instrumentation Officer Name Role Phone Jaycee Mejía APRN Primary Care Provider + Allergies Active Allergy Reactions Criticality Noted Date Comments Penicillins Medications Medication Sig Dispensed Refills Start Date End Date Status docusate sodium (COLACE) 100 mg capsule 100 MG = 1 Capsule(s), PO, Twice daily 04/15/2008 Active ibuprofen (ADVIL;MOTRIN) 800 mg tablet 800 MG = 1 Tablet(s), PO, Q8H 04/15/2008 Active acetaminophen (TYLENOL) 325 mg tablet 04/15/2008 Active estrogens, conjugated, (PREMARIN) 0.625 mg tablet 0.625 MG = 1 Tablet(s), PO, Once daily 04/15/2008 Active estradioL 0.1 mg/24 hr Patch Semiweekly Change 1 patch on the skin twice a week. 24 patch 3 05/18/2021 Active Family History Medical History Relation Comments Breast Cancer Mother Relation Status Comments Mother Social History Tobacco Use Types Packs/Day Years Used Date Smoking Tobacco: Every Day Smokeless Tobacco: Never Sex and Gender Information Value Date Recorded Sex Assigned at Not on file Gender Identity Not on file Sexual Orientation Not on file Last Filed Vital Signs Vital Sign Reading [...] - - Body Mass Index - - Plan of Treatment Health Maintenance Due Date Last Done Comments CT Colonography 1978 Colonoscopy 1980 Colorectal Cancer Screening 1980 FIT DNA 1980 FIT 1980 Sigmoidoscopy (10 year) with FIT yearly 1978 Sigmoidoscopy 1980 HIV screen 1996 Hepatitis C Screening 1996 Lipid Screening 1996 Hepatitis B vaccine (0-59 yrs) (1) 1997 Tetanus/Diphtheria/Pertussis Vaccines (1 - Tdap) 07/23 HPV test 2008 PAP Smear 2008 Breast Cancer Share Decision Needed 2018 Breast Cancer screening 2018 Covid-19 Vaccine (1 - season) 2024 Influenza (Flu) vaccine (1 o f 1 - Influenza standard series) 07/12/2024 Care Teams Chemical Instrumentation Officer Relationship Specialty Start Date End Date Jaycee Mejía APRN [address] [place] [address] PCP - General Family Medicine 02/08/21
--- OUTSIDE RECORDS SUMMARY | 2024-12-02 15:19 | XMS_ITS | Encounter Summary ---
[facility] [place] [address] Care Team Providers Care Volcanology Teacher Name Role Phone Jaycee Mejía APRN Primary Care Provider + Encounter Details Date Type Department Care Team (Late st Contact Info) Description 05/17/2021 Orders Only [facility] [place] [id number] Rhona Self, RN Social History Tobacco Use Types Packs/Day Years [...] on filedocumented in this encounter Care Teams Volcanology Teacher Relationship Specialty Start Date End Date Jaycee Mejía APRN [address] [place] [address] PCP - General Family Medicine 02/08/21 documented as of this encounter
--- OUTSIDE RECORDS SUMMARY | 2024-12-02 15:19 | XMS_ITS | Encounter Summary ---
Author Organization [facility] Address [address] [place] [address] Care Team Providers Care Grocery Shopper Name Role Phone Basilio Castellano MD Primary Care Provider [phone] Encounter Details Date Type Department Care Team (Latest Contact Info) Description 05/15/2019 6:59 EDT - 05/15/2019 23:59 EDT Hospital Encounter [address] [address] Unknown, Provider, Discharge Disposition: Auto Discharge Social History Tobacco Use Types Packs/Day Years Used Date Smoking Tobacco: Never Assessed Comments Unknown Sex and Gender Information Value Date Recorded Sex Assigned at Not on file Legal Sex Female 18:13 EST Gender Identity Not on file Sexual Orientation Not on file documented as of this encounter Discharge Disposition Disposition Code Departure Means Destination Auto Discharge Home documented in this encounter Plan of Treatment Not on file documented as of this encounter Visit Diagnoses Not on filedocumented in this encounter Care Teams Grocery Shopper Relationship Specialty Start Date End Date Basilio Castellano MD [address] [place], [place] [address] PCP - General 01/06/10 documented as of this encounter
--- OUTSIDE RECORDS SUMMARY | 2024-12-02 15:19 | XMS_ITS | Encounter Summary ---
Author Organization [facility] Address [address] [place] [address] Care Team Providers Care Coper Hand Name Role Phone Basilio Castellano MD Primary Care Provider [phone] Encounter Details Date Type Department Care Team (Late st Contact Info) Description 02/11/2001 Results Only [facility] [place] [facility] [address] [place] [address] Keyana Hernandez MD [address] [place] [address] [address] [place], [place] [phone] Social History Tobacco Use Types Packs/Day Years [...] Procedure Name Priority Date/Time Associated Diagnosis Comments CYTOPATHOLOGY Routine 02/11/2001 0:00 EDT documented in this encounter Results * CYTOPATHOLOGY (02/11/2001 0:00 EDT) Pathology Report: CYTOPATHOLOGY REPORT Reports generated via electronic interface contain original data; however they are lacking the format of the original report. Caution should be taken when reading/interpreti ng unformatted reports. Name: ? ANA HOPPER ? Accession #: ? [id number] : ? 1980 (Age: 20) ??F ?Collect Date: ? 02/11/2001 Location: ? [facility] ? Receive Date: ? 02/13/2001 Provider: ?KEYANA HERNANDEZ MD Copy to: ? Specimen/Source: ?ThinPrep Pap Test, Cervix/Endocervix Last Menstrual Period: ? 11/03/00 Treatment History: ? LEEP Laser therapy: ? SPECIMEN ADEQUACY ? Satisfactory for evaluation. GENERAL CATEGORIZATION ? Within Normal Limits ? Document reviewed and electronically signed by: ? NARGIS King(ASCP) ? Report Date: ??02/14/2001 12:37 End of Report [facility] 02/11/2001 02/13/2001 us Keyana Hernandez MD PATHOLOGY ORDERABLES Final Resul t [facility] [address] [place] [address] documented in this encounter Visit Diagnoses Not on filedocumented in this encounter Care Teams Coper Hand Relationship Specialty Start Date End Date Basilio Castellano MD [address] [place] [address] PCP - General 01/06/10 documented as of this encounter
[2024-12-02 15:43] LABS: HCT 41.5 % (36.0-46.0); HGB 13.9 g/dL (11.2-15.7); MCH 29.4 pg (27.0-33.0); MCHC 33.5 % (32.0-36.0); MCV 88 fL (80-95); MPV 9.5 fL (8.0-11.0); Platelet Count 416 10^3/uL (130-400); RBC 4.73 10^6/uL (3.93-5.22); RDW 13.5 % (11.7-14.6); RDW-SD 43.8 fL; WBC 8.24 10^3/uL (4.4-10.8)
[2024-12-02 16:04] LABS: ALT 32 U/L (14-59); AST 25 U/L (15-37); Albumin 3.9 g/dL (3.4-5.0); Alkaline Phosphatase 67 U/L (46-116); Anion Gap 5.3 mmol/L (3-11); BUN 9 mg/dL (7-18); Bilirubin, Total 0.24 mg/dL (0.2-1.0); CO2 31.7 mmol/L (21.0-32.0); CREATININE 0.8 mg/dL (0.55-1.02); Chloride 105 mmol/L (98-107); Estimated GFR 91.97 (mL/min/1.73m2); Glucose 109 mg/dL (74-106); Potassium 4.7 mmol/L (3.5-5.1); Sodium 142 mmol/L (136-145); TSH 1.56 uIU/mL (0.36-3.74); Total Protein 7.1 g/dL (6.4-8.2)
[2024-12-02 16:42] LABS: Hemoglobin A1C 5.8 % (<5.7)
== END 2024-12-02 15:13 | disposition home or self-care (01) ==
LOC: NCHCN 15:12
PROVIDERS: PCP Registered Nurse; Visit Provider Physician Assistant
DX: R63.4 Abnormal weight loss (principal)
CPT/HCPCS: 80053; 85027; 83036; 84443

== ENCOUNTER 2025-01-21 08:44 | Outpatient (REF) | payer OTHER, SELFPAY ==
[2025-01-21 15:32] LABS: Calculated LDL 113 mg/dL (<100); Cholesterol 189 mg/dL (<200); HDL Cholesterol 61 mg/dL (>or=50); Triglyceride 78 mg/dL (<150)
[2025-01-22 09:43] LABS: Hepatitis C Ab w Rflx HCV PCR Negative (Negative)
[2025-01-22 09:44] LABS: HIV-1/2 Ag & Ab Screen Negative (Negative)
== END 2025-01-21 08:45 | disposition home or self-care (01) ==
LOC: NCHCN 08:44
PROVIDERS: PCP Registered Nurse; Visit Provider Family Medicine
DX: Z11.4 Encounter for screening for human immunodeficiency virus [HIV] (principal); Z20.5 Contact with and (suspected) exposure to viral hepatitis; R73.03 Prediabetes
CPT/HCPCS: 80061; 86803; 87389

== ENCOUNTER 2025-03-05 12:06 | Outpatient (REF) | payer OTHER, SELFPAY ==
[2025-03-08 12:09] LABS: Chlamydia Result Negative (Negative)
[2025-03-08 12:33] LABS: GC Result Positive (Negative)
== END 2025-03-05 12:07 | disposition home or self-care (01) ==
LOC: NCHCN 12:06
PROVIDERS: PCP Registered Nurse; Visit Provider Physician Assistant
DX: Z20.2 Contact with and (suspected) exposure to infections with a predominantly sexual mode of transmission (principal); Z11.3 Encounter for screening for infections with a predominantly sexual mode of transmission
CPT/HCPCS: 87491; 87591

== ENCOUNTER 2025-05-07 11:57 | Outpatient (REF) | payer OTHER, SELFPAY ==
[2025-05-10 12:17] LABS: Chlamydia Result Negative (Negative); GC Result Negative (Negative)
== END 2025-05-07 11:58 | disposition home or self-care (01) ==
LOC: NCHCN 11:57
PROVIDERS: PCP Registered Nurse; Visit Provider Family Medicine
DX: Z11.3 Encounter for screening for infections with a predominantly sexual mode of transmission (principal)
CPT/HCPCS: 87491; 87591